=== PATIENT | male | born 1975 | race Caucasian/White ===

== ENCOUNTER 2022-01-22 13:11 | Emergency (ER) | payer MEDICAID ==
[~2022-01-22] VITALS: Ht 160 cm; Wt 89.0 kg
[2022-01-22] MEDS ORDERED: IBUPROFEN 800MG TABLET PO ONE (15:45)
[2022-01-22 15:53] VITALS: BP 175/109
[2022-01-22] MEDS ORDERED: NAP5EC MT (17:03)
== END 2022-01-22 17:18 | disposition home or self-care (01) ==
LOC: ER 13:11
DX: S80.02XA Contusion of left knee, initial encounter (principal); W18.11XA Fall from or off toilet without subsequent striking against object, initial encounter; Y93.F1 Activity, caregiving, bathing; Y92.9 Unspecified place or not applicable
CPT/HCPCS: 73562; 99283